=== PATIENT | female | born 1985 | race Caucasian/White ===

== ENCOUNTER 2019-03-14 08:15 | Inpatient (IN) ==
[2019-03-14 08:42] LABS: URINE SOURCE VOIDED
[2019-03-14 08:58] LABS: CLARITY HAZY (CLEAR); COLOR YELLOW; GLUCOSE URINE NEGATIVE (NEGATIVE)
[2019-03-14 08:59] LABS: BILIRUBIN URINE NEGATIVE (NEGATIVE); BLOOD URINE NEGATIVE (NEGATIVE); KETONE URINE 15 mg/dL (NEGATIVE); LEUKOCYTES URINE NEGATIVE (NEGATIVE); NITRITE URINE NEGATIVE (NEGATIVE); PROTEIN URINE NEGATIVE (NEGATIVE); SP GRAVITY URINE 1.012; UROBILINOGEN URINE 0.2 EU/dL (0.2-1.0)
[2019-03-14 09:06] LABS: UR AMPHETAMINES QUAL NONE DETECTED (NONE DETECT); UR BARBITUATES QUAL NONE DETECTED (NONE DETECT); UR BENZODIAZEPIN QUAL NONE DETECTED (NONE DETECT); UR CANNABINOIDS QUAL NONE DETECTED (NONE DETECT); UR COCAINE QUAL NONE DETECTED (NONE DETECT); UR METHADONE QUAL NONE DETECTED (NONE DETECT); UR OPIATES QUAL NONE DETECTED (NONE DETECT); UR OXYCODONE QUAL NONE DETECTED (NONE DETECT); UR PCP QUAL NONE DETECTED (NONE DETECT)
[2019-03-14] MEDS: LR 1,000 ML IV ONE ×2 (10:30→11:40)
[2019-03-14] MEDS ORDERED: STADOL IV ONE (11:42)
[2019-03-14] MEDS ORDERED: REGLAN PO ONE (12:51)
[2019-03-14] MEDS ORDERED: LR 500 ML IV ONE (12:51)
[2019-03-14] MEDS ORDERED: PEPCID PO ONE (12:51)
[2019-03-14] MEDS ORDERED: KEFZOL 2 GM/D5W 2 GM/50 ML IVPB IV ONE (12:53)
[2019-03-14] MEDS ORDERED: LR 1,000 ML IV SCH (13:00)
[2019-03-14] MEDS ORDERED: BICITRA PO ONE (13:17)
[2019-03-14 13:18] LABS: BASO# 0.02 X1000 (0.0-0.2); BASO% 0.2 % (0.0-0.8); EOS# 0.05 X1000 (0.0-0.7); EOS% 0.6 % (0.0-10.0); HEMATOCRIT 39.4 % (37.0-47.0); HEMOGLOBIN 13.1 g/dL (12.0-16.0); IMM GRAN# 0.06 X1000 (0.0-0.04); IMM GRAN% 0.7 % (0.0-0.5); LYMPH# 1.28 X1000 (1.2-3.4); LYMPH% 14.7 % (20.5-51.1); MCH 28.8 PG (27-31); MCHC 33.2 g/dL (33-37); MCV 86.6 FL (81-99); MONO# 0.63 X1000 (0.11-0.59); MONO% 7.3 % (1.7-9.3); MPV 11.7 FL (7.4-10.4); NEUT# 6.64 X1000 (1.4-6.5); NEUT% 76.5 % (42.2-75.2); PLT 211 X1000 (130-400); RBC 4.55 XMIL (4.2-5.4); RDW 14.1 % (11.5-14.5); WBC 8.68 X1000 (4.8-10.8)
[2019-03-14] MEDS ORDERED: DURAMORPH ONE (14:00)
[2019-03-14] MEDS ORDERED: NEO-SYNEPHRINE ONE (14:11)
[2019-03-14] MEDS ORDERED: SODIUM CHLORIDE 0.9% 10 ML ONE (14:12)
[2019-03-14] MEDS ORDERED: PITOCIN ONE ×2 (14:12→14:27)
[2019-03-14] MEDS ORDERED: ZOFRAN ONE (14:17)
[2019-03-14] MEDS ORDERED: TORADOL ONE (15:01)
[2019-03-14] MEDS ORDERED: DULCOLAX PR PRN (15:12)
[2019-03-14] MEDS ORDERED: NORCO-5 PO PRN (15:12)
[2019-03-14] MEDS ORDERED: PHENERGAN IM PRN (15:12)
[2019-03-14] MEDS ORDERED: DEMEROL PO PRN ×2 (15:12)
[2019-03-14] MEDS ORDERED: PITOCIN IM PRN (15:12)
[2019-03-14] MEDS ORDERED: M-M-R II VACCINE SUBQ ONE (15:12)
[2019-03-14] MEDS ORDERED: ATARAX PO PRN (15:12)
[2019-03-14] MEDS ORDERED: HYDROXYZINE IM PRN (15:12)
[2019-03-14] MEDS ORDERED: BOOSTRIX VACCINE IM ONE (15:12)
[2019-03-14] MEDS ORDERED: DEMEROL IM PRN (15:12)
[2019-03-14] MEDS ORDERED: AMBIEN PO PRN (15:12)
[2019-03-14] MEDS ORDERED: MYLICON PO PRN (15:12)
--- NOTE | 2019-03-14 16:27 | OPERATIVE NOTE ---
PROCEDURE DATE : 03/14/2019 PREOPERATIVE DIAGNOSES: 1. Intrauterine at 38 and 5/7 weeks. 2. History of previous section. 3. Spontaneous rupture of membranes. POSTOPERATIVE DIAGNOSES: 1. Intrauterine at 38 and 5/7 weeks. 2. History of previous section. 3. Spontaneous rupture of membranes. 4. Operative delivery of a female , 8 pounds 8 ounces, with scores of 9 and 9 at 1427 hours on 03/14/2019. PROCEDURE: Repeat low transverse section. SURGEON: Jim Soler III, MD FILLING AND STAPLING MACHINE OPERATOR: ORT. ANESTHESIA: Spinal - Dr. Ford. FINDINGS: Normal appearing uterus, tubes, and ovaries. COMPLICATIONS: None. ESTIMATED BLOOD LOSS: 600 mL. SPECIMENS REMOVED: Placenta. DRAINS: Maier to straight drain. COUNTS: All counts were correct times 3. INDICATION: This patient is 33-year-old white female, G2, P1, at 38 and 5/7 weeks who presents with spontaneous rupture of membranes and also with a history of a prior section. We will proceed with operative delivery. The patient was counseled about the risks of surgery including bleeding, infection, and bowel or bladder injury. DESCRIPTION OF PROCEDURE: The patient was taken to the Labor and Delivery OR. She had spinal anesthesia placed and then was placed in the dorsal lithotomy position with a roll under her right hip. Then, she was prepped and draped in sterile fashion with placement of a Maier catheter. Adequate anesthesia was noted by using Allis clamps on the skin and then a Pfannenstiel skin incision was made on the lower abdomen using a scalpel. This was taken down sharply to the fascial layer. A small jose was made in the rectus fascia. This was extended bilaterally by curved Woods scissors and pickups. Then, blunt and sharp dissection of the superior and inferior aspects of the rectus fascia was then performed. The rectus muscle was then divided in the midline and the peritoneal layer was entered bluntly and the peritoneal incision was extended superiorly and inferiorly with care taken to avoid the bladder. The bladder blade was placed into the abdominal cavity. Bladder reflection was created using Metzenbaum scissors. Then a #10 scalpel was used to make a transverse incision on the lower uterine segment. Clear fluid was noted upon entry into the amniotic cavity. The hysterotomy incision was extended by the surgeon's fingers bilaterally. Then the head was elevated through the hysterotomy site and delivered atraumatically with gentle fundal pressure. Bulb suction of the nose and mouth was performed at this point and time and then the rest of the body was delivered atraumatically with gentle fundal pressure. The umbilical cord was clamped twice and cut. The infant was handed to the nursery nurse in attendance for delivery. Cord blood samples were obtained at this time. The placenta was then manually extracted. The uterus was then exteriorized. A wet lap was placed around the uterus and a dry lap was then used to curette the uterine cavity of clots and debris. The uterine incision was then closed using 0 chromic in a running locking fashion times 1. Good hemostasis was noted. The posterior cul-de-sac was then irrigated copiously. The uterus was replaced back into the abdominal cavity. The paracolic gutters were cleansed using moistened lap sponges. The uterine incision and bladder reflection were inspected and good hemostasis was noted. The peritoneal incision was then closed using 2-0 chromic in a running fashion times 1 and two interrupted stitches were used to reapproximate the rectus muscle. The fascial layer was then closed using 0 PDS in a running fashion times 1. The subcutaneous layer was then irrigated copiously and electrocautery was used to obtain hemostasis. Two 3-0 chromic interrupted sutures were used to reapproximate the subcutaneous layer. The skin was then reapproximated using octavio. The patient tolerated the procedure well and was taken to the recovery room in stable condition. All counts were correct times 3. cc: Jim Soler III, MD
[2019-03-14] MEDS ORDERED: MORPHINE IV PRN (16:35)
[2019-03-14] MEDS ORDERED: PITOCIN 20 UNITS/NS 20 UNITS/1,000 ML IV.SOLN IV ONE (17:00)
[2019-03-14] MEDS: MYLICON PO SCH ×2 (18:42→20:03)
--- NOTE | 2019-03-14 19:21 | HISTORY AND PHYSICAL ---
HISTORY OF PRESENT ILLNESS: The patient is a 33-year-old white female, G2, P1, at 38 and 5/7 weeks who presents with uterine contractions that began at 1:30 in the morning and has been monitored for uterine contractions and cervical change. Then at roughly 11:30 in the morning she complained of leaking of fluid. This was evaluated by the lab for rupture of membranes and was positive. Group B strep status is negative. Her Rh status is negative, rubella nonimmune, and has been complicated by chronic hypertension. The patient has been on labetalol for the duration of . PAST MEDICAL HISTORY: Significant for hypertension. PAST SURGICAL HISTORY: section x1. PAST OBSTETRICAL HISTORY: G2, P1, section x1. GYNECOLOGICAL HISTORY: Menarche at age 15. REVIEW OF SYSTEMS: All systems reviewed and noncontributory. FAMILY HISTORY: Significant for breast cancer, high blood pressure, polycystic kidney disease, diabetes mellitus. SOCIAL HISTORY: Tobacco use none. Alcohol use none. MEDICATIONS: vitamins, labetalol 100 mg b.i.d. ALLERGIES: No known drug allergies. PHYSICAL EXAMINATION: VITAL SIGNS: Height 5 feet 8 inches, weight 233 pounds, temperature 98.5 degrees, blood pressure 144/91, pulse of 99, respirations 20. heart rate in the 130s with positive accelerations. HEENT: Pupils equal, round, reactive to light and accommodation. Extraocular movements intact. Oropharynx clear. NECK: Supple. No thyromegaly. LUNGS: Clear to auscultation. HEART: Regular rate and rhythm. ABDOMEN: Gravid, nontender. PELVIC: The cervix had been checked by the nurse prior to the rupture of membranes, and she was closed. EXTREMITIES: Mild lower extremity edema noted bilaterally. NEUROLOGICAL: DTRs were 2+ bilaterally. Cranial nerves 2 through 12 grossly intact. ASSESSMENT AND PLAN: A 33-year-old white female, G2, P1, at 38 and 5/7 weeks with spontaneous rupture of membranes and history of prior section. Patient will be admitted and will process toward a repeat section. Patient counseled about the risks of surgery including bleeding, infection, bowel or bladder injury. cc: Jim Soler III, MD
[2019-03-14] MEDS: PERICOLACE PO SCH (20:03)
[2019-03-14] MEDS: TORADOL IV SCH (20:03)
[2019-03-15] MEDS ORDERED: PITOCIN 10 UNITS/NS 1,000 ML IV SCH (01:00)
[2019-03-15] MEDS: TORADOL IV SCH ×2 (03:25→09:15)
[2019-03-15 06:52] LABS: BASO# 0.03 X1000 (0.0-0.2); BASO% 0.3 % (0.0-0.8); EOS# 0.04 X1000 (0.0-0.7); EOS% 0.4 % (0.0-10.0); HEMOGLOBIN 12.6 g/dL (12.0-16.0); IMM GRAN# 0.03 X1000 (0.0-0.04); IMM GRAN% 0.3 % (0.0-0.5); LYMPH# 0.95 X1000 (1.2-3.4); LYMPH% 9.2 % (20.5-51.1); MCH 28.4 PG (27-31); MCHC 33.2 g/dL (33-37); MCV 85.6 FL (81-99); MONO# 0.95 X1000 (0.11-0.59); MONO% 9.2 % (1.7-9.3); MPV 10.6 FL (7.4-10.4); NEUT# 8.33 X1000 (1.4-6.5); NEUT% 80.6 % (42.2-75.2); PLT 191 X1000 (130-400); RBC 4.44 XMIL (4.2-5.4); RDW 13.7 % (11.5-14.5); WBC 10.33 X1000 (4.8-10.8)
[2019-03-15] MEDS: MYLICON PO SCH ×4 (09:15→20:33)
[2019-03-15] MEDS: TRANDATE PO SCH ×2 (09:40→20:33)
[2019-03-15] MEDS: NORCO-10 PO PRN ×2 (14:12→18:11)
[2019-03-15] MEDS ORDERED: LR 1,000 ML IV SCH (15:18)
[2019-03-15] MEDS: MOTRIN PO PRN (18:11)
[2019-03-15] MEDS: PERICOLACE PO SCH (20:33)
[2019-03-15] MEDS ORDERED: FLU VACCINE IM ONE (21:06)
[2019-03-16] MEDS: MOTRIN PO PRN (02:41)
[2019-03-16] MEDS: NORCO-10 PO PRN ×2 (02:41→09:00)
[2019-03-16 08:47] VITALS: BP 142/88
[2019-03-16] MEDS: TRANDATE PO SCH (09:00)
[2019-03-16] MEDS: MYLICON PO SCH (09:02)
--- NOTE | 2019-03-16 19:38 | DISCHARGE SUMMARY ---
ADMISSION DATE: 03/14/2019 DISCHARGE DATE: 03/16/2019 ADMITTING DIAGNOSIS: 1. Term . 2. Chronic hypertension. 3. Prior section. 4. Repeat section. 5. Spontaneous rupture of membranes. Brief history. HOSPITAL COURSE: The patient is a 33-year-old, 2, para 1 now 2, who is admitted to Labor and Delivery at 38 and 5/7 weeks gestation with spontaneous rupture of membranes. She underwent evaluation and found to have undergone spontaneous rupture and a repeat section was performed. Please see separate operative note. Her postoperative course was uncomplicated. Postoperative day #1, she is afebrile with stable vital signs. She is ambulating, voiding, tolerating a regular diet. Hemoglobin of 12.6, down from 13.1. On postoperative day #2, ambulating, voiding, tolerating a regular diet. Vital signs stable, afebrile. She is discharged home in stable condition. She is asked to follow up in the office in one week. Call the office for pain or fever greater than 100.4, abnormal uterine bleeding. Maintain pelvic rest and regular diet. Follow-up is for her incision check. A prescription for Motrin and [place] provided. Follow up in one week. cc: Jim Soler III, MD
== END 2019-03-16 11:25 | disposition home or self-care (01) | DRG 787 ==
LOC: OPLD 08:15 → LD 08:17
PROVIDERS: ADMIT Obstetrics & Gynecology; ATTEND Obstetrics & Gynecology